=== PATIENT | female | born 1975 | race Caucasian/White ===

== ENCOUNTER 2020-07-07 19:12 | Inpatient (IN) | payer MEDICAID, SELFPAY ==
[2020-07-07 19:12] VITALS: BP 119/80; PULSE 81; RESP 16; TEMP 36.4; O2SAT 99; BMI 26.9
--- NOTE | 2020-07-07 20:10 | ED.DCSUM_ITS ---
History of Present Illness Chief Complaint: Substance Abuse Narrative: This patient is a 45-year-old female who presents seeking detox. On further questioning she actually is already involved with a detox program. She was on Suboxone. She recently went through a program because she wanted to be off of Suboxone and use of Vivitrol. She has been off Suboxone for a couple of weeks. She received Vivitrol last week. She relapsed and used heroin over the weekend. Currently she complains of nausea and chills. She also reported methamphetamine and K2 use. She otherwise is prescribed Geodon. No diabetes hypertension hyperlipidemia. Past Medical History - Allergies and Home Meds Allergies/Adverse Reactions: Allergies No Known Allergies Allergy (Verified 07/07/20 19:16) Primary Care Physician: Les Palacios DO [Primary Care Provider] - Past Medical History: - - Polysubstance abuse Review of Systems All systems negative except as indicated General: Reports: Chills. Denies: Fever Eyes: Denies: Visual changes - bilaterally ENT: Denies: Bilateral ear pain Cardiovascular: Denies: Chest pain Respiratory: Denies: Dyspnea Gastrointestinal: Reports: Nausea. Denies: Vomiting Skin: Denies: Rash Neurological: Denies: Headache Hematologic: Denies: Easy bruising Allergy: Denies: Uticaria Physical Exam Vital Signs/Narrative: Vital Signs Temp Pulse Resp BP Pulse Ox 07/07/20 19:12 97.6 F L 81 16 119/80 99 Inital Vital Signs reviewed: Yes General: Well nourished Head: Normocephalic Eyes: EOMI ENT: Moist mucous membranes Neck: Supple Cardiovascular: Regular rate Respiratory: No distress Abdomen: Soft Skin: Normal color Neurological: Alert Psychological: Normal affect Diagnostic/Tx/Re-eval - Medical Decision Making Patient has already been detoxed. She just relapsed. The water treatment plant supervisor who wants to get her into a residential program tomorrow. Therefore it was recommended that the patient be hospitalized for safety for overnight until we can try to get her into a residential program. She was given Zofran for nausea and I did order screening labs. Patient discussed with the hospitalist and patient will be admitted. ED Disposition - Plan for ED Patient: Disposition: Acute Care Hospital [facility] Diagnosis: Polysubstance abuse Referrals: Les Palacios DO [Primary Care Provider] -
--- NOTE | 2020-07-07 20:30 | CM.ED ---
SOCIAL WORK Informant: Dr. Jones Reason for Consult: Substance Abuse Patient presents to [facility] ER wanting detox. Patient reports used 2mg of heroin on Monday and Monday. Patient states this morning used Adderall and K2. Patient reports was given the Vivitrol shot on or Monday. Patient stating I may have my days wrong. Patient states is experiencing withdrawal symptoms, chills, crawling out of skin, and nausea. Dr. Jones to discuss with hospitalist. Facilitated phone call to [facility] Treatment Navigator to discuss options if not admitted to detox. Patient spoke with Amarjit. Per Amarjit and patient, discussed possibility of admission to residential treatment through [facility]. If admitted, Arina to follow up with patient in the morning. Girma Mojica, SCHOOL LUNCH MANAGER, FACING GRINDER
--- NOTE | 2020-07-07 21:10 | HP.PCM_ITS ---
Problem List (1) Polysubstance abuse Status: Acute History of Present Illness Date of Admission: 07/07/20 Chief Complaint: Withdrawal symptoms The patient is a 45 year old F with a significant history of polysubstance abuse who presents emergency department with withdrawal symptoms that started on the same day of presentation. Her drug of choice is methamphetamine; K2 and heroin. She has been snorting methamphetamine for about 5 years. She has been smoking K2 for about 3 years. And she has been shooting heroine for over 10 years. She described the symptoms as chills; anxiety; and nausea. Patient is working with [employer] with a plan to get her into an inpatient drug rehabilitation. Past Medical History Medical History: Medical History (Last Updated 07/08/20 @ 02:[address] Alek Collins MD) Denies previous medical history. Allergies No Known Allergies Allergy (Verified 07/07/20 19:16) Home Medications: Ambulatory Orders Medication Instructions Recorded Hydroxyzine Pamoate [Vistaril] 50 mg PO BID PRN PRN 07/07/20 Ziprasidone HCl [Geodon] 80 mg PO BID 07/07/20 Surgical History: - - Tubal ligation Smoking Status: Current every day smoker Tobacco Use: Cigarettes Drugs: Heroin - *Family History Maternal History Items: - - His mother from heroin overdose. Paternal History Items: - - His father is alive and healthy Review of Systems Constitutional: Reports: Chills. Denies: Fever, Weight Change HEENT: Denies: Head Aches, Sinus Congestion, Sinus Drainage Cardiovascular: Denies: Chest Pain, Palpitations Respiratory: Denies: Cough, Shortness of breath at rest, Sputum production Gastrointestinal: Reports: Nausea. Denies: Abdominal Pain, Vomiting Genitourinary: Denies: Dysuria Musculoskeletal: Denies: Joint Pain, Joint Tenderness Skin: Denies: Rash, Wounds Neurological: Denies: Numbness, Tingling, Focal weakness Psychiatric: Reports: Anxiety. Denies: Depression, Homicidal Ideations, Suicidal Ideations Hematologic/ Lymphatic: Denies: Easy Bruising, Easy Bleeding VTE Information - Inpt Only VTE Present on Admission: No VTE Mechan Device Prophylaxis: None VTE Pharm Prophylaxis ordered?: No Reason prophylaxis not ordered:: Treatment Not Indicated - Low risk; encouraged to ambulate. Patient Problems: Active and Suspected Problems (Last Updated 07/08/20 @ 02:[address] Alek Collins MD) Polysubstance abuse (Acute) - Physical Exam Vitals/I&O's: Vital Signs Temp Pulse Resp BP Pulse Ox 97.6 F L 81 16 119/80 99 07/07/20 19:12 07/07/20 19:12 07/07/20 19:12 07/07/20 19:12 07/07/20 19:12 Weight: 60.6 kg Body Mass Index (BMI) 26.9 General: Alert, Oriented x3, Cooperative HEENT: Atraumatic, PERRLA, EOMI, Normocephalic Neck: Supple, No JVD, Negative Carotid Bruits Lungs: Clear to auscultation, Normal air movement Cardiovascular: Regular rate, Regular Rhythm, Normal S1, Normal S2, No murmurs Abdomen: Bowel Sounds Present, Soft, Non Tender Extremities: No edema, Capillary Refill Less than 3 Seconds Skin: No rashes, No breakdown Musculoskeletal: No Tenderness to Palpation of Joints or Extremities Neurological: Cranial nerves II-XII grossly intact Psych/Mental Status: Normal Affect, Appropriate Assessment/Plan All Active Problems (Last Updated 07/08/20 @ 02:[address] Alek Collins MD) Polysubstance abuse (Acute) The patient is a 45 year old F with a significant history of polysubstance abuse including IV heroin use; and tobacco abuse who presents emergency department with drug withdrawal symptoms Opioid dependence and withdrawal Patient had a Vivitrol 5 days ago. Other adjunctive medications for withdrawal ordered: Gabapentin as needed; dicyclomine as needed; Vistaril as needed; methocarbamol as needed; clonidine as needed; Imodium as needed; trazodone as needed and Zofran as needed. Monitor COWS and CINA score Case management consult. Tobacco abuse Counseled Nicotine patch prescribed. DVT prophylaxis Low risk Encourage to ambulate Inpatient E&M: 30188 Init Hosp L2
[2020-07-07 21:26] LABS: Absolute Lymphocyte Count 3.69 X10^3/uL (0.83-4.51); Absolute Neutrophil Count 10.7 X10^3/uL (2.0-7.7); Basophil# 0.08 X10^3/uL; Basophil% 0.5 % (0-1); Eosinophil# 0.26 X10^3/uL; Eosinophils% 1.7 % (0-5); Hematocrit 41.1 % (37-47); Hemoglobin 13.7 g/dL (12.0-15.0); Lymphocyte # 3.69 X10^3/ul (4.0); Lymphocyte % 23.7 % (19-41); Mean Corp Hgb Conc 33.3 g/dL (32-36); Mean Corpuscular Hgb 29.5 pg (27.0-32.0); Mean Corpuscular Volume 88.6 fL (81-99); Mean Platelet Vol. 10.8 fl (6.2-12.0); Monocyte# 0.83 X10^3/uL; Monocyte% 5.3 % (0-10); NRBC Flagged by Analyzer 0 % (0-5); Neutrophil # 10.67 X10^3/uL (2.7-7.7); Neutrophil % 68.4 % (47-70); POSITIVE COUNT YES; Platelet Count 340 K/mm3 (150-450); RBC Distribution Width CV 13.1 % (11.6-14.6); RBC Distribution Width SD 42.5 fl (35.1-43.9); Red Blood Count 4.64 M/mm3 (4.2-5.4); White Blood Count 15.6 K/mm3 (4.4-11.0)
[2020-07-07 21:32] LABS: Differential Indicated SCAN CRITERIA MET
[2020-07-07 21:37] LABS: Amphetamine Urine VISTA POSITIVE (<1000 ng/mL); Barbiturate Urine VISTA NEGATIVE (< 200 ng/mL); Benzodiazepine Urine VISTA NEGATIVE (< 200 ng/mL); Cocaine Urine VISTA NEGATIVE (< 300 ng/mL); Ecstacy Urine VISTA POSITIVE (< 500 ng/mL); Methadone Urine VISTA NEGATIVE (< 300 ng/mL); PCP Urine VISTA NEGATIVE (< 25 ng/mL); THC Urine VISTA NEGATIVE (< 50 ng/mL); Vista UDS pH Range 6
[2020-07-07 21:39] VITALS: BP 119/80; PULSE 81; RESP 16; TEMP 36.4; O2SAT 99
[2020-07-07] MEDS: Ondansetron 8 MG Tablet PO (21:39)
--- NOTE | 2020-07-07 21:39 | ED.RN ---
PT IS VERY ANXIOUS AND QUICK TO LOOSE HER TEMPER. PT DID NOT WANT HER BLOOD DRAWN AGAIN BECAUSE SHE'S HAD IT DRAWN 3 TIMES TODAY ALREADY. NONE OF THEM HERE AT [facility]. I WAS ABLE TO OBTAIN SOME BLOOD FROM PT BEFORE THE NEEDLE PULLED OUT. A FEW DROPS OF BLOOD GOT ON THE INSIDE OF THE PTS JACKET. PT BECAME VERY UPSET, BUT THEN STATES THAT SHE UNDERSTANDS. I OFFERED TO USE HYDROGEN PEROXIDE TO REMOVE BLOOD, PT REFUSED.
[2020-07-07 21:40] LABS: AST(SGOT) 15 U/L (15-37); Alanine Aminotransfer ALT/SGPT 28 U/L (13-56); Albumin, Serum 3.8 g/dL (3.2-5.0); Alkaline Phosphatase 78 U/L (45-117); Anion Gap 7 (5-15); BUN 10 mg/dL (7-18); Calcium,Total 9.2 mg/dL (8.5-10.1); Chloride 106 mmol/L (98-107); Creatinine, Serum 0.83 mg/dL (0.55-1.02); EST Glomerular Filtration Rate 79 mL/min (>60); Est Glom Filt Rate - Afr Amer 95 mL/min (>60); Estimated Creatinine Clearance 81.89 ml/min; Globulin 3.8 g/dL (2.2-4.2); Glucose 96 mg/dL (74-106); Potassium 3.6 mmol/L (3.5-5.1); Protein, Total 7.6 g/dL (6.4-8.2); Sodium Level 138 mmol/L (136-145)
[2020-07-07 21:57] LABS: Differential Comment SCANNED
[2020-07-07 23:06] VITALS: BMI 26.9; BMI 27.0
[2020-07-07 23:06] LABS: Alcohol, Blood (Medical)-Serum < 3.0 mg/dL
[2020-07-07 23:20] VITALS: BP 119/75; PULSE 73; RESP 18; TEMP 37; O2SAT 99
[2020-07-07] MEDS: traZODone 100 MG Tablet PO (23:29)
[2020-07-07] MEDS: Dicyclomine 10 MG Capsule 20 MG PO (23:29)
[2020-07-07] MEDS: Ziprasidone HCl 20 MG Capsule 80 MG PO (23:30)
[2020-07-07] MEDS: Gabapentin 300 MG Capsule PO (23:30)
[2020-07-07] MEDS: Methocarbamol 750 MG Tablet 1500 MG PO (23:30)
[2020-07-07] MEDS: cloNIDine HCl 0.1 MG Tablet PO (23:30)
--- NOTE | 2020-07-07 23:39 | PCS.PANDOC ---
PANDEMIC DOCUMENTATION INITIATED: Date: 07/07/20 Time: 5490
--- NOTE | 2020-07-08 00:14 | ED.RN ---
WHEN THIS RN WENT TO DRAW BLOOD NEEDED THAT WAS NOT OBTAINED WITH FRST STICK. PT VERY ANGRY STATING, WHY DIDN'T YOU GET IT ALL THE FIRST TIME. THIS IS RIDICULOUS. PT YELLING AT THIS RN IN ROOM STATING THAT SHE IS SICK OF HOSPITALS AND HOW SHE HAS BEEN TREATED. THIS RN PROVIDES EMOTIONAL SUPPORT AND EXPLAINS TO PT THE ADMISSION PROCESS AND WHY BLOOD NEEDED TO BE OBTAINED. PT ALSO EDUCATED ABOUT HO BEHAVIOR OF YELLING AT STAFF WILL NOT BE TOLERATED ON ADMISSION AND IS PART OF THE CONTRACT THE PT SIGNED FOR DETOX. PT GIVEN TIME TO CALM DOWN AND IS THEN AGREEABLE TO BLOOD DRAW. AFTER BLOOD DRAW PT BECAME ANGRY AGAIN THAT SHE IS WAITING FOR ADMISSION. THIS RN PROVIDES RE-EDUCATION ON THE ADMISSION PROCESS. PT BELONGINGS GATHERED AND PLACED INTO BAGS FOR PENDING ADMISSION. PT CONTINUES TO BE ANGRY.
[2020-07-08 05:16] VITALS: BP 95/57; PULSE 72; RESP 16; TEMP 36.9; O2SAT 97
[2020-07-08] MEDS: Dicyclomine 10 MG Capsule 20 MG PO ×3 (05:29→17:32)
[2020-07-08] MEDS: Methocarbamol 750 MG Tablet 1500 MG PO ×3 (05:30→17:32)
[2020-07-08 09:10] VITALS: BP 112/58; PULSE 84; RESP 18; TEMP 36.5; O2SAT 100
[2020-07-08] MEDS: Ziprasidone HCl 20 MG Capsule 80 MG PO ×2 (09:11→21:22)
[2020-07-08] MEDS: Ondansetron 8 MG Tablet PO ×2 (09:16→21:56)
[2020-07-08] MEDS: Gabapentin 300 MG Capsule PO ×2 (09:16→17:32)
[2020-07-08 09:36] LABS: HIV - WCH Non-Reactive (Nonreactive)
[2020-07-08] MEDS: hydrOXYzine PAM 25 MG Capsule 50 MG PO ×2 (11:30→21:39)
--- NOTE | 2020-07-08 11:32 | ADDICTION ---
This va underwriter met with pt in her room to complete ASAM, MSE and DUDIT assessments and to plan for d/c. Pt states that she wants to engage in RES tx at [facility]. This va underwriter has made referral to [facility] RES team and is waiting for approval. All assessments completed, faxed to and placed in pt chart. SW notified of plan.
--- NOTE | 2020-07-08 11:46 | CASEMGMT ---
Addendum entered by Maryam Connor 07/08/20 13:50: SW received call from Ama at [facility] stating pt will direct admit to residential tomorrow with [facility] transporting pt at 10:00am. Physician updated. Original Note: Social Work Note SW updated that pt is Homeless, wants to move to [facility]. Pt's plan is to direct admit to [facility] residential. SW in to speak with pt. SW introduced self and role at [facility]. Pt is alert and orientated x3. SW provided pt with housing resources. Pt thanked this worker, denied additional needs or concerns at this time. Maryam Connor HEEL SEAT FLAP STAPLER, SUPERVISOR PASTE PLANT
[2020-07-08 14:00] VITALS: BP 107/74; PULSE 89; RESP 18; TEMP 36.6; O2SAT 95
[2020-07-08 14:01] VITALS: O2SAT 98
--- NOTE | 2020-07-08 14:27 | PCM.PN.HOSP ---
Patient Problems: Active and Suspected Problems (Last Updated 07/08/20 @ 02:[address] Alek Collins MD) Polysubstance abuse (Acute) Subjective: Patient has been admitted for opiate withdrawal. Per discussion with nursing she was given Vivitrol approximately 5 days ago but relapsed a day after her Vivitrol dose. I did discuss this with her. She states that she was admitted as an inpatient for acute detox, was discharged and immediately went and got her Vivitrol dosing, and the next day started using narcotics again. She states she wants to get clean but is having significant trouble staying clean when she is detoxed and would like to pursue inpatient treatment at this time. She states she knows she has hepatitis C but has not been tested for HIV recently. She currently is complaining of some withdrawal signs and thinks that it is probably related to spice withdrawal, and is in the form of nausea. Vitals/I&O's: Vital Signs Temp Pulse Resp BP Pulse Ox 97.7 F L 84 18 112/58 L 98 07/08/20 09:10 07/08/20 09:10 07/08/20 09:10 07/08/20 09:10 07/08/20 14:01 Oxygen Delivery Method Room Air Weight: 60.328 kg Body Mass Index (BMI) 26.9 Intake and Output for Last 24 Hours 07/06/20 07/07/20 07/08/20 23:59 23:59 23:59 Intake Total 1100 / 1100 Balance 1100 / 1100 General: Alert, Oriented x3, Cooperative, No apparent distress, Well developed, Well nourished, - - Middle-aged white female walking around her room, appears mildly anxious, nontoxic in no distress HEENT: Atraumatic, Normocephalic Oral: Moist Mucosa Lungs: Clear to auscultation, Normal air movement, No rhonchi, No wheeze, No rales Cardiovascular: Regular rate, Regular Rhythm, Normal S1, Normal S2, No murmurs, No Ectopic Activity, No rub noted, No Gallop Abdomen: Bowel Sounds Present, Soft, Non Tender, Non-Distended Extremities: No clubbing, No cyanosis, No edema, Capillary Refill Less than 3 Seconds, Peripheral Pulses Normal Neurological: Cranial nerves II-XII grossly intact, Neuro grossly intact Psych/Mental Status: Appropriate, Anxious Laboratory Results 07/07/20 21:15: WBC 15.6 H, RBC 4.64, Hgb 13.7, Hct 41.1, MCV 88.6, MCH 29.5, MCHC 33.3, RDW Std Deviation 42.5, RDW Coeff of Dc 13.1, Plt Count 340, MPV 10.8, Immature Gran % (Auto) 0.400, Neut % (Auto) 68.4, Lymph % (Auto) 23.7, Faulkner % (Auto) 5.3, Eos % (Auto) 1.7, Baso % (Auto) 0.5, Absolute Neuts (auto) 10.7 H, Absolute Lymphs (auto) 3.69, Nucleated RBC % 0, Differential Comment SCANNED 07/07/20 21:15: Sodium 138, Potassium 3.6, Chloride 106, Carbon Dioxide 25.0, Anion Gap 7, BUN 10, Creatinine 0.83, Estim Creat Clear Calc 81.89, Est GFR (MDRD) Af Amer 95, Est GFR (MDRD) Non-Af 79, BUN/Creatinine Ratio 12.0, Glucose 96, Calcium 9.2, Total Bilirubin 0.30, AST 15, ALT 28, Alkaline Phosphatase 78, Total Protein 7.6, Albumin 3.8, Globulin 3.8, Albumin/Globulin Ratio 1.0 07/07/20 21:15: Urine Opiates Screen NEGATIVE, Urine Methadone Screen NEGATIVE, Ur Barbiturates Screen NEGATIVE, Ur Phencyclidine Scrn NEGATIVE, Ur Amphetamines Screen POSITIVE H, U Methamphetamin-MDMA POSITIVE H, U Benzodiazepines Scrn NEGATIVE, Urine Cocaine Screen NEGATIVE, U Cannabinoids Screen NEGATIVE, Ur Drug Screen Comment 07/07/20 22:35: Ethyl Alcohol < 3.0 07/07/20 22:35: HIV 1&2 Antibody Non-Reactive Current Medications Clonidine (Clonidine Hcl 0.1 Mg Tablet) 0.1 mg PO Q8H PRN PRN PRN Reason: RESTLESSNESS Last Admin: 07/07/20 23:30 Dose: 0.1 mg Documented by: Dicyclomine HCl (Dicyclomine 10 Mg Capsule) 20 mg PO Q6H PRN PRN PRN Reason: Abdominal Discomfort Last Admin: 07/08/20 11:30 Dose: 20 mg Documented by: Gabapentin (Gabapentin 300 Mg Capsule) 300 mg PO Q8H PRN PRN PRN Reason: moderate to severe anxiety Last Admin: 07/08/20 09:16 Dose: 300 mg Documented by: Hydroxyzine Pamoate (Hydroxyzine Heidi 25 Mg Capsule) 50 mg PO Q6H PRN PRN PRN Reason: mild anxiety Last Admin: 07/08/20 11:30 Dose: 50 mg Documented by: Loperamide HCl (Loperamide 2 Mg Capsule) 2 mg PO Q4H PRN PRN PRN Reason: LOOSE STOOLS Methocarbamol (Methocarbamol 750 Mg Tablet) 1,500 mg PO Q6H PRN PRN PRN Reason: MUSCLE SPASM Last Admin: 07/08/20 11:30 Dose: 1,500 mg Documented by: Nicotine (Nicotine 14 Mg Patch) 14 mg TD DAILY [facility] Last Admin: 07/08/20 09:11 Dose: 14 mg Documented by: Ondansetron HCl (Ondansetron 8 Mg Tablet) 8 mg PO Q8H PRN PRN PRN Reason: NAUSEA Last Admin: 07/08/20 09:16 Dose: 8 mg Documented by: Trazodone HCl (Trazodone 100 Mg Tablet) 100 mg PO QHS PRN PRN PRN Reason: INSOMNIA Last Admin: 07/07/20 23:29 Dose: 100 mg Documented by: Ziprasidone (Ziprasidone Hcl 20 Mg Capsule) 80 mg PO BID [facility] Last Admin: 07/08/20 09:11 Dose: 80 mg Documented by: STROKE Vital Signs/Narrative: Vital Signs Pulse Ox 07/08/20 14:01 98 Medical Necessity - Tobacco Use Smoking Status: Current every day smoker Tobacco Use: Cigarettes Assessment/Plan All Active Problems (Last Updated 07/08/20 @ 02:[address] Alek Collins MD) Polysubstance abuse (Acute) Acute polysubstance withdrawal (posh, heroin, methamphetamines) -Recent Vivitrol shot--> 5 days ago -No need for Suboxone taper -Continue supportive medications -[facility] is involved in plan for discharge tomorrow morning at 10 AM to inpatient rehab Chronic hepatitis C -Patient would like viral load assessed as an outpatient to see if she is cleared disease -Recommend that she follow-up with her PCP IVDU -Known hepatitis C infection -Check a HIV status -See above Tobacco abuse -Recommend cessation -Nicotine patch as needed DVT prophylaxis -Early ambulation CODE STATUS -Full Inpatient E&M: 21704 Subs Hosp L2
[2020-07-08] MEDS: cloNIDine HCl 0.1 MG Tablet PO (14:57)
[2020-07-08] MEDS: traZODone 100 MG Tablet PO (21:22)
[2020-07-08] MEDS: Ibuprofen 400 MG Tablet 800 MG PO (21:49)
[2020-07-08 21:50] VITALS: BP 113/62; PULSE 90; RESP 20; TEMP 36.8; O2SAT 97
[2020-07-09 05:30] VITALS: BP 108/70; PULSE 83; RESP 20; TEMP 36.6; O2SAT 97
[2020-07-09] MEDS: Dicyclomine 10 MG Capsule 20 MG PO (05:30)
[2020-07-09] MEDS: Methocarbamol 750 MG Tablet 1500 MG PO (05:31)
[2020-07-09] MEDS: Gabapentin 300 MG Capsule PO (05:31)
[2020-07-09] MEDS: cloNIDine HCl 0.1 MG Tablet PO (05:31)
[2020-07-09 08:39] VITALS: BP 95/53; PULSE 100; RESP 18; TEMP 36.8; O2SAT 98
[2020-07-09] MEDS: Ondansetron 8 MG Tablet PO (08:48)
[2020-07-09] MEDS: Loperamide 2 MG Capsule PO (08:48)
[2020-07-09] MEDS: hydrOXYzine PAM 25 MG Capsule 50 MG PO (08:48)
[2020-07-09] MEDS: Ibuprofen 400 MG Tablet 800 MG PO (08:48)
--- NOTE | 2020-07-09 09:24 | ADDICTION ---
This sheet writer met with pt briefly to finalize d/c plan. Pt to be transported by [facility] staff to main office for direct admit into residential treatment. Pt. venus.
--- NOTE | 2020-07-09 09:27 | DCINST_ITS ---
- Discharge Diagnoses Current Active Problems: Current Active and Chronic Problems (Last Updated 07/08/20 @ 02:[address] Alek Collins MD) Polysubstance abuse (Acute) You will use the following diet at home:: No restrictions Your food should be the consistency of: Regular Discharge Activity: Return to Normal Activity Allergies/Adverse Reactions: Allergies No Known Allergies Allergy (Verified 07/07/20 19:16) Medications to take at Discharge Hydroxyzine Pamoate [Vistaril] 50 mg PO BID PRN PRN 07/07/20 Ziprasidone HCl [Geodon] 80 mg PO BID 07/07/20 traZODone [Desyrel] 100 mg PO QHS PRN PRN #30 tab 07/09/20 The following prescriptions were given: traZODone [Desyrel] 100 mg PO QHS PRN PRN #30 tab PRN Reason: Insomnia Transmission Status: Pending to [facility] Primary Care Physician: Les Palacios DO [COURTESY STAFF PHYSICIAN] - Please follow up with your Primary Care Physician in: 1-2 weeks after d/c from Inpt rehab Test Results: Test results from this visit will be discussed in further detail at your follow- up appointment, if applicable.
--- NOTE | 2020-07-09 09:38 | PCM.DC.SUM ---
Discharge Date and Diagnosis - Problem List Patient Problems: Active and Suspected Problems (Last Updated 07/08/20 @ 02:[address] Alek Collins MD) Polysubstance abuse (Acute) Date of Admission: 07/07/20 Date of Discharge: 07/09/20 - Primary Discharge Diagnosis Acute Problems: Active Problems (Last Updated 07/08/20 @ 02:[address] Alek Collins MD) Polysubstance abuse (Acute) Hospital Course and Treatment Imaging Results: None [facility]-addiction medicine Operations: None Procedures: None Summary of Care Provided: Ms Hidalgo is a 45 year old F who presented to the emergency department on 07/07/2020 for substance abuse. She has been involved in a detox program and was just given Vivitrol last week but relapsed and used IV heroin on the weekend prior to admission. On admission she was complaining of chills and nausea she states that she also uses K2 and methamphetamine and feels that her withdrawal symptoms may be related to withdrawal from methamphetamine and K2 rather than heroin given the fact that she had Vivitrol recently. She was admitted given supportive medications, with recent Vivitrol administration Suboxone was not given at this time. She was seen by [facility] and arranged for admission to the inpatient program. She does admit to a chronic history of hepatitis C. HIV study was performed and this was nonreactive. She states she very much wants to get clean for herself and for her children. [facility]. Discharge diagnoses Acute polysubstance withdrawal (K2, IV heroin, methamphetamines) Chronic hepatitis C IV drug use Tobacco abuse Patient Problems: Active and Suspected Problems (Last Updated 07/08/20 @ 02:[address] Alek Collins MD) Polysubstance abuse (Acute) Subjective: Patient states she is feeling well. Reports that the trazodone helped considerably and asked for a prescription at discharge. Denies any pain, nausea, diarrhea, or tremor. Is happy to be going to rehab today. - Physical Exam Vitals/I&O's: Vital Signs Temp Pulse Resp BP Pulse Ox 98.3 F 100 18 95/53 L 98 07/09/20 08:39 07/09/20 08:39 07/09/20 08:39 07/09/20 08:39 07/09/20 08:39 Oxygen Delivery Method Room Air Weight: 60.328 kg Body Mass Index (BMI) 26.9 Intake and Output for Last 24 Hours 07/07/20 07/08/20 07/09/20 23:59 23:59 23:59 Intake Total 1600 / 1600 200 / 200 Balance 1599 / 1600 200 / 200 General: Alert, Oriented x3, Cooperative, No apparent distress, Well developed, Well nourished, - - Pleasant middle-aged white female walking around room, and eating breakfast Oral: Moist Mucosa, No Gingival or Mucosal Lesions/ Ulcerations Neck: Supple, Trachea Midline Lungs: Clear to auscultation, Normal air movement, No rhonchi, No wheeze, No rales Cardiovascular: Regular rate, Regular Rhythm, Normal S1, Normal S2 Abdomen: Bowel Sounds Present, Soft, Non Tender, Non-Distended Extremities: No clubbing, No cyanosis, No edema, Capillary Refill Less than 3 Seconds, Peripheral Pulses Normal Neurological: Cranial nerves II-XII grossly intact, Neuro grossly intact Psych/Mental Status: Normal Affect, Appropriate Current Medications Clonidine (Clonidine Hcl 0.1 Mg Tablet) 0.1 mg PO Q8H PRN PRN PRN Reason: RESTLESSNESS Last Admin: 07/09/20 05:31 Dose: 0.1 mg Documented by: Dicyclomine HCl (Dicyclomine 10 Mg Capsule) 20 mg PO Q6H PRN PRN PRN Reason: Abdominal Discomfort Last Admin: 07/09/20 05:30 Dose: 20 mg Documented by: Gabapentin (Gabapentin 300 Mg Capsule) 300 mg PO Q8H PRN PRN PRN Reason: moderate to severe anxiety Last Admin: 07/09/20 05:31 Dose: 300 mg Documented by: Hydroxyzine Pamoate (Hydroxyzine Heidi 25 Mg Capsule) 50 mg PO Q6H PRN PRN PRN Reason: mild anxiety Last Admin: 07/09/20 08:48 Dose: 50 mg Documented by: Ibuprofen (Ibuprofen 400 Mg Tablet) 800 mg PO Q8H PRN PRN PRN Reason: Pain Score 1-10 Last Admin: 07/09/20 08:48 Dose: 800 mg Documented by: Loperamide HCl (Loperamide 2 Mg Capsule) 2 mg PO Q4H PRN PRN PRN Reason: LOOSE STOOLS Last Admin: 07/09/20 08:48 Dose: 2 mg Documented by: Methocarbamol (Methocarbamol 750 Mg Tablet) 1,500 mg PO Q6H PRN PRN PRN Reason: MUSCLE SPASM Last Admin: 07/09/20 05:31 Dose: 1,500 mg Documented by: Nicotine (Nicotine 14 Mg Patch) 14 mg TD DAILY [facility] Last Admin: 07/09/20 09:12 Dose: Not Given Documented by: Ondansetron HCl (Ondansetron 8 Mg Tablet) 8 mg PO Q8H PRN PRN PRN Reason: NAUSEA Last Admin: 07/09/20 08:48 Dose: 8 mg Documented by: Trazodone HCl (Trazodone 100 Mg Tablet) 100 mg PO QHS PRN PRN PRN Reason: INSOMNIA Last Admin: 07/08/20 21:22 Dose: 100 mg Documented by: Ziprasidone (Ziprasidone Hcl 20 Mg Capsule) 80 mg PO BID [facility] Last Admin: 07/08/20 21:22 Dose: 80 mg Documented by: Discharge Activity: Return to Normal Activity Home Medications: Medications to take at Discharge Hydroxyzine Pamoate [Vistaril] 50 mg PO BID PRN PRN 07/07/20 Ziprasidone HCl [Geodon] 80 mg PO BID 07/07/20 traZODone [Desyrel] 100 mg PO QHS PRN PRN #30 tab 07/09/20 Following Prescriptions Were Given to Patient: traZODone [Desyrel] 100 mg PO QHS PRN PRN #30 tab PRN Reason: Insomnia Transmission Status: Received by [facility] Primary Care Physician: Lse Palacios DO [COURTESY STAFF PHYSICIAN] - Please follow up with your Primary Care Physician in: 1-2 weeks after d/c from In rehab Medical Necessity - Tobacco Use Smoking Status: Current every day smoker Tobacco Use: Cigarettes Meaningful Use Info Meaningful Use Diagnoses (Choose all that apply): None applicable Inpatient E&M: 35882 [facility]
[2020-07-09] MEDS: Ziprasidone HCl 20 MG Capsule 80 MG PO (09:51)
== END 2020-07-09 09:58 | DRG 773 ==
LOC: ED 20:56 → MS3 21:14
PROVIDERS: Admitting Provider Hospitalist; Emergency Provider Emergency Medicine; Visit Provider Internal Medicine
DX: F11.23 Opioid dependence with withdrawal (principal); F15.13 Other stimulant abuse with withdrawal; F12.13 Cannabis abuse with withdrawal; F17.210 Nicotine dependence, cigarettes, uncomplicated; B18.2 Chronic viral hepatitis C; Z81.8 Family history of other mental and behavioral disorders
CPT/HCPCS: 36415; 80053; 80307; 82077; 85025; 86703; 99283; 99406; J2405

== ENCOUNTER 2020-09-15 13:11 | Outpatient (REF) | payer MEDICAID, SELFPAY ==
[2020-07-07 23:06] VITALS: BMI 26.9
[2020-09-15 13:12] VITALS: BP 115/65; PULSE 80; RESP 16; TEMP 36.8; O2SAT 99; BMI 26.9
--- NOTE | 2020-09-15 13:20 | ED.RN ---
pt denies illegal drugs or alcohol. pt asking for food and something to drink.
--- NOTE | 2020-09-15 13:47 | ED.VISSUMM ---
- ER Visit Summary Date of Service: 09/15/20 Chief Complaint: Altered level of consciousness] History of Present Illness: The patient is a 45 F [presents to the emergency department via police escort and EMS. [facility] and was found in her car sleeping and EMS was contacted however at that time she was ANO x3 and refused to transport. Subsequently later in the day today she was once again found on the sidewalk in her vehicle and EMS was again contacted who bring her to the emergency department for evaluation. Patient does not know why she parked on the sidewalk. She denies any illicit drug use or alcohol use. Patient states that she has been clean of meth for 1 year and has used opiates in the past but not for a long time. She denies any alcohol use. She denies recent illness. Patient denies any falls or head injuries. She denies headache.] Physical Examination: [HEENT-PERRLA, EOMI. Cranial nerves II through XII grossly intact. TMs clear. Mucous membranes moist. No adenopathy. Patient answers questions appropriately but seems somewhat somnolent. Cardiovascular-regular rate and rhythm without murmur or ectopy Lungs-clear to auscultation, chest wall stable without crepitus or subcu emphysema Abdomen-normoactive bowel sounds, soft, nontender, no rebound or rigidity, no peritoneal signs. Extremities-intact ?4, normal range of motion, normal pulses, atraumatic. No track raman noted.] Test Results: [CBC with it was normal. Chemistries normal. Alcohol was negative. Toxicology screen was negative.] Emergency Department Course and Treatment: [The line established on arrival. Patient placed on a instructor adjunct surgical technician.] Treatment Plan: [This point patient will be discharged. She will be referred to primary care physician lamination builder for no doc for follow-up. At this point patient feels that maybe she fell asleep in her car but feels well and has not been ill and is ready to be discharged.] Disposition: [Patient home in stable condition] Impression: [Mental status [id number] uncertain] This note was generated with [employer] dictation software. It may contain incorrect words, spelling, and punctuation that were not noted in review of the chart prior to signing ED Disposition - Plan for ED Patient: Referrals: Care Physician,No Primary [Primary Care Provider] -
[2020-09-15 14:02] LABS: Absolute Lymphocyte Count 2.18 X10^3/uL (0.83-4.51); Absolute Neutrophil Count 5.1 X10^3/uL (2.0-7.7); Basophil# 0.06 X10^3/uL; Basophil% 0.7 % (0-1); Eosinophil# 0.17 X10^3/uL; Eosinophils% 2.1 % (0-5); Hematocrit 43.5 % (37-47); Lymphocyte # 2.18 X10^3/ul (4.0); Mean Corp Hgb Conc 32.2 g/dL (32-36); Mean Corpuscular Hgb 29.9 pg (27.0-32.0); Mean Corpuscular Volume 92.9 fL (81-99); Mean Platelet Vol. 10.3 fl (6.2-12.0); Monocyte# 0.55 X10^3/uL; Monocyte% 6.8 % (0-10); NRBC Flagged by Analyzer 0 % (0-5); Neutrophil # 5.08 X10^3/uL (2.7-7.7); Platelet Count 260 K/mm3 (150-450); RBC Distribution Width CV 13.7 % (11.6-14.6); RBC Distribution Width SD 46.5 fl (35.1-43.9); Red Blood Count 4.68 M/mm3 (4.2-5.4); White Blood Count 8.1 K/mm3 (4.4-11.0)
[2020-09-15] MEDS: 0.9% Normal Saline 1,000 ML 150 ML IV (14:06)
[2020-09-15 14:15] LABS: Anion Gap 3 (5-15); BUN 11 mg/dL (7-18); BUN/Creat Ratio 12.3 RATIO (10-20); Calcium,Total 9.3 mg/dL (8.5-10.1); Chloride 109 mmol/L (98-107); EST Glomerular Filtration Rate 72 mL/min (>60); Est Glom Filt Rate - Afr Amer 87 mL/min (>60); Estimated Creatinine Clearance 75.39 ml/min; Glucose 85 mg/dL (74-106); Sodium Level 143 mmol/L (136-145)
[2020-09-15 14:47] LABS: Alcohol, Blood (Medical)-Serum < 3.0 mg/dL
[2020-09-15 15:21] VITALS: BP 117/90; PULSE 76; RESP 16
[2020-09-15 15:40] LABS: Amphetamine Urine VISTA NEGATIVE (<1000 ng/mL); Barbiturate Urine VISTA NEGATIVE (< 200 ng/mL); Benzodiazepine Urine VISTA NEGATIVE (< 200 ng/mL); Cocaine Urine VISTA NEGATIVE (< 300 ng/mL); Ecstacy Urine VISTA NEGATIVE (< 500 ng/mL); Methadone Urine VISTA NEGATIVE (< 300 ng/mL); PCP Urine VISTA NEGATIVE (< 25 ng/mL); THC Urine VISTA NEGATIVE (< 50 ng/mL); Vista UDS pH Range 5
--- NOTE | 2020-09-15 15:54 | ED.DEP ---
ED Disposition - Plan for ED Patient: Instructions: ED ALOC Referrals: Care Physician,No Primary [Primary Care Provider] - Héctor Gutierrez MD [STAFF PHYSICIAN] - 3-5 Days
== END 2020-09-15 16:00 | disposition home or self-care (01) ==
LOC: ED 13:11
PROVIDERS: Visit Provider Emergency Medicine
DX: R41.82 Altered mental status, unspecified (principal); Z72.0 Tobacco use
CPT/HCPCS: 80048; 80307; 82077; 85025; 99284; J7030; A4216

== ENCOUNTER 2020-09-17 16:02 | Emergency (ER) | payer MEDICAID, SELFPAY ==
[2020-09-17 16:05] VITALS: BP 99/59; PULSE 95; RESP 14; TEMP 37.1; O2SAT 96; BMI 28.0
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
--- NOTE | 2020-09-17 17:24 | ED.RN ---
PT CAUGHT SMOKING CIGARETTE IN ROOM. BOBBIN HAULER AND CIGARETTES REMOVED, REMINDED PT OF NON-SMOKING POLICY. CHARGE UPDATED. PT HAVING DIFFICULTY WALKING, STAGGERING. APPEARS DROWSY, SPEECH SLURRED.
[2020-09-17 18:24] LABS: Amphetamine Urine VISTA NEGATIVE (<1000 ng/mL); Barbiturate Urine VISTA NEGATIVE (< 200 ng/mL); Benzodiazepine Urine VISTA NEGATIVE (< 200 ng/mL); Cocaine Urine VISTA NEGATIVE (< 300 ng/mL); Ecstacy Urine VISTA NEGATIVE (< 500 ng/mL); Methadone Urine VISTA NEGATIVE (< 300 ng/mL); PCP Urine VISTA NEGATIVE (< 25 ng/mL); THC Urine VISTA NEGATIVE (< 50 ng/mL); Vista UDS pH Range 5
== END 2020-09-17 18:46 | disposition home or self-care (01) ==
PROVIDERS: Emergency Provider Emergency Medicine
DX: Z02.89 Encounter for other administrative examinations (principal); F19.10 Other psychoactive substance abuse, uncomplicated; F17.200 Nicotine dependence, unspecified, uncomplicated; R40.0 Somnolence
CPT/HCPCS: 80307; 82077; 99282

== ENCOUNTER 2020-11-02 17:16 | Inpatient (IN) | payer MEDICAID, SELFPAY ==
[2020-11-02 17:17] VITALS: BP 84/56; PULSE 61; RESP 16; TEMP 37.1; O2SAT 95; BMI 23.8
--- NOTE | 2020-11-02 17:35 | EDS_ITS ---
HPI History of Present Illness Chief Complaint: Substance Abuse Informant: patient Onset/Context/Timing Onset: Days Context: Gradual Onset Timing: Continuous Current Severity: Moderate Maximum Severity: Moderate Narrative Narrative: The patient is a 45-year-old female presents to the emergency department questing opiate detox. Patient states she has a longstanding history of opiate abuse. She was actually able to detox and stayed clean for some time, but then started using again 4 weeks ago. She states that she also uses synthetic marijuana. She snorts heroin. She denies injection. She states that she did used to take. Prior similar symptoms: Yes Recent Illness/Hospitalization: No PFSH [facility] Medical History (Updated 11/02/20 @ 18:[address] Sara Valadez MD) Denies previous medical history. Drug addict Home Medications NK 09/15/20 [History Last Taken Unknown] Allergy/AdvReac Type Severity Reaction Status Date / Time No Known Allergies Allergy Verified 11/02/20 17:16 Social History Smoking Status: Current every day smoker ROS ROS ED Constitutional Constitutional ED: Denies chills or fever(s) Eyes Eyes: Denies blurry vision or change in vision ENT ENT ED: Denies ear pain or sore throat Cardiovascular Cardiovascular: Denies chest pain or palpitations Respiratory/Chest Respiratory/Chest: Denies cough, dyspnea or dyspnea on exertion Gastrointestinal Gastrointestinal: Denies abdominal pain, nausea or vomiting Genitourinary Genitourinary ED: Denies dysuria or urinary frequency Musculoskeletal Musculoskeletal: Denies arthralgias or myalgias Integumentary Denies rash Neurologic Neurologic: Denies headache(s) or paresthesias Psychiatric Psychiatric: Denies anxiety or depression Endocrine Endocrinology: Denies polydipsia or polyuria Allergic/Immunologic Allergic/Immunologic ED: Denies urticaria EXAM Physical Exam Const Vital Signs: 11/02/20 17:17 Temperature 98.7 F Temperature Source Temporal Pulse Rate 61 Respiratory Rate 16 Blood Pressure 84/56 L Blood Pressure Mean 65 Pulse Ox 95 Oxygen Delivery Method Room Air Positive well nourished and well developed General Appearance ED: well developed HEENT Reports normocephalic, head/scalp atraumatic and moist mucous membranes Eyes PERRL and EOMs intact bilaterally Neck no lymphadenopathy and supple General: Negative for tenderness Chest Wall inspection of chest normal Resp normal respiratory effort and clear to auscultation bilaterally Cardio regular rate, regular rhythm and no murmurs GI normal to inspection, nondistended, normoactive bowel sounds Palpation: Negative for tender, guarding or rebound tenderness present Back/Spine no CVA tenderness Cervical Spine: Negative for cervical spine tenderness Thoracic Spine / Upper Back: Negative for thoracic spinal tenderness Extremity normal to inspection General Extremety ED: Negative for tenderness Neuro oriented x3 and CN's II-XII intact bilaterally Neuro Narrative: No focal deficits appreciated. Sensorium / Orientation: alert Psych mental status grossly normal Skin no rashes or lesions noted, no wounds and skin turgor normal MDM MDM MDM Narrative Medical decision making narrative: Patient presents requesting detox from heroin. She is awake and alert. She is not suicidal or homicidal. Patient will undergo medical screening examination. She was discussed with the hospitalist for admission. Impression 1. Opiate dependence and withdrawal Discharge Plan Triage Chief Complaint: Substance Abuse ED Provider: Gulshan Brar Dx/Rx/DC Orders Prescriptions: No Action NK RF: 0 Primary Care Provider: Care Physician,No Primary
--- NOTE | 2020-11-02 18:14 | PCM.HP.STD ---
[facility] General Date of Admission: 11/02/20 Chief Complaint: Requesting detox from opioids. [facility] Narrative PERLA BREAUX, is a 45 F with past medical history as mentioned above presented to the emergency room requesting admission for acute opioid withdrawal for medical stabilization. Patient was admitted on June, for acute opioid withdrawal and she was discharged to follow-up with [facility] program. She stated that she followed up for short period of time with monitoring program and then lost it. She stated supple for about couple of months. Around 1 month ago, she started using drugs again. She has been snorting heroin every day, around 1.5 g every day and she has been smoking synthetic marijuana as well. She denied use of IV drugs. She complained of muscle aches and pains, anxiety and restlessness. She was tearful during the encounter. She mentioned that her life is miserable currently and she wants to take care of this issue. Her blood pressure was borderline but she was asymptomatic, other vital signs were stable. CBC was unremarkable. CMP, urine drug screen and blood alcohol level are pending. She is being admitted for acute opiate withdrawal medical stabilization. [facility] Medical History (Updated 11/02/20 @ 18:[address] Sara Valadez MD) Denies previous medical history. Drug addict Home Medications NK 09/15/20 [History Last Taken Unknown] Allergy/AdvReac Type Severity Reaction Status Date / Time No Known Allergies Allergy Verified 11/02/20 17:16 no significant family history no surgical history Social History (Updated 11/02/20 @ 18:[address] Sara Valadez MD) Smoking Status: Current every day smoker substance use type: marijuana and heroin ROS Constitutional Constitutional: Denies anorexia, chills, fatigue, fever(s) or malaise Eyes Eyes: Denies blurry vision, change in eye color, change in vision, double vision or eye pain ENT HEENT: Denies ear pain, epistaxis, headache(s), nasal congestion, post nasal drip or sore throat Cardiovascular Cardiovascular: Denies chest pain, dyspnea on exertion, edema, lightheadedness, orthopnea, palpitations, paroxysmal nocturnal dyspnea or syncope Respiratory/Chest Respiratory/Chest: Denies cough, dyspnea, hemoptysis, productive cough, shortness of breath at rest, shortness of breath with exertion or wheezing Gastrointestinal Gastrointestinal: Denies abdominal pain, constipation, diarrhea, hematemesis, hematochezia, melena, nausea or vomiting Genitourinary Genitourinary: Denies burning urination, dysuria, hematuria, urinary hesitancy or urinary urgency Musculoskeletal Musculoskeletal: Denies arthralgias, back pain, joint pain, joint swelling, myalgias or neck pain Neurologic Neurologic: Reports tremor(s); Denies confusion, dizziness, focal weakness, headache(s), numbness, paresthesias, seizures or tingling Psychiatric Psychiatric: Reports anxiety; Denies depression, homicidal ideation or suicidal ideation Endocrine Endocrinology: Denies change in body appearance, cold intolerance, heat intolerance, polydipsia or polyuria Hematologic/Lymphatic Hematologic/Lymphatic: Reports other; Denies easy bleeding, easy bruising or lymphadenopathy Allergic/Immunologic Allergic/Immunologic: Denies itchy eyes, rhinitis, throat swelling, tongue swelling, hives, urticaria or wheezing Vital Signs Vital Signs Vital Signs: 11/02/20 17:17 Temperature 98.7 F Temperature Source Temporal Pulse Rate 61 Respiratory Rate 16 Blood Pressure 84/56 L Blood Pressure Mean 65 Pulse Ox 95 Oxygen Delivery Method Room Air Physical Exam Const alert, oriented x3, no apparent distress and no limitations General Appearance: cooperative, comfortable and well kempt HEENT normocephalic, head/scalp atraumatic and moist oral mucous membranes Head and Scalp: normocephalic and atraumatic Eyes PERRL, EOMs intact bilaterally, conjunctivae normal and no scleral icterus General Eye: normal appearance of both eyes Periorbital: periorbital findings normal Neck no lymphadenopathy, supple, no meningeal signs, no JVD and no carotid bruits General: trachea midline Thyroid: thyroid normal Resp normal respiratory effort, normal air movement and clear to auscultation bilaterally Auscultation: Negative for crackles, rales, rhonchi or wheezes Cardio regular rate, regular rhythm, S1 normal heart sound, S2 normal heart sound, no murmurs and no JVD Peripheral Pulses: pulses 2+ throughout GI normal to inspection, nondistended, normoactive bowel sounds, soft to palpation, non-tender and non-distended; Negative for hepatosplenomegaly Auscultation: normoactive bowel sounds Extremity normal to inspection, full ROM and no clubbing, cyanosis or edema Skin no rashes or lesions noted, no wounds and no petechiae Neuro oriented x3, CN's II-XII intact bilaterally and moves all extremities Sensorium / Orientation: alert Speech: speech normal Motor Exam: strength 5/5 throughout Psych mental status grossly normal and denies hallucinations Psych Narrative: Tearful. Mood & Affect: anxious Lab / Micro Data Result Diagrams: 11/02/20 18:25 11/02/20 17:45 Assessment & Plan Assessment/Plan (1) Opioid withdrawal: (2) Tobacco abuse: (3) Opioid abuse: (4) Polysubstance abuse: PLAN: This is a 45 years old female patient presented to the emergency room requesting admission for acute opioid withdrawal for medical stabilization. #1 acute opiate withdrawal: Patient was admitted for detox on June,, relapsed couple of months later. She has been snorting heroin every day for the last 4 weeks, has been smoking synthetic marijuana as well. CBC was unremarkable. CMP, urine drug screen and blood alcohol are pending. Plan: Admit to [facility] floor, initiate opioid withdrawal protocol with tapering Subutex, as needed Catapres, Bentyl, Neurontin, Vistaril, Imodium, methocarbamol, Zofran and trazodone, consult [facility] program. #2 polysubstance abuse: Urine drug screen is pending. Plan as above. #3 tobacco abuse: NicoDerm patch. #4 DVT prophylaxis: Low risk patient, no prophylaxis indicated. This note was generated with [employer] dictation software. It may contain incorrect words, spelling, and punctuation that were not noted in checking the note before signing. Visit Charges Inpatient E&M: 79755 Init Hosp L2
[2020-11-02 18:33] LABS: Absolute Lymphocyte Count 4.08 X10^3/uL (0.83-4.51); Absolute Neutrophil Count 5.8 X10^3/uL (2.0-7.7); Basophil# 0.07 X10^3/uL; Basophil% 0.6 % (0-1); Eosinophil# 0.14 X10^3/uL; Eosinophils% 1.3 % (0-5); Hematocrit 43.1 % (37-47); Hemoglobin 14.3 g/dL (12.0-15.0); Lymphocyte # 4.08 X10^3/ul (0.83-4.51); Lymphocyte % 37.3 % (19-41); Mean Corp Hgb Conc 33.2 g/dL (32-36); Mean Corpuscular Hgb 29.8 pg (27.0-32.0); Mean Corpuscular Volume 89.8 fL (81-99); Mean Platelet Vol. 9.8 fl (6.2-12.0); Monocyte# 0.85 X10^3/uL; Monocyte% 7.8 % (0-10); NRBC Flagged by Analyzer 0 % (0-5); Neutrophil # 5.79 X10^3/uL (2.7-7.7); Neutrophil % 52.8 % (47-70); Platelet Count 341 K/mm3 (150-450); RBC Distribution Width CV 13.6 % (11.6-14.6); RBC Distribution Width SD 44.9 fl (35.1-43.9)
[2020-11-02 18:36] LABS: Bacteria 0 SEEN /hpf (None Seen); Red Blood Cells-Urine 0 SEEN /hpf (0-5)
[2020-11-02 18:44] LABS: Color, Urine Yellow (Yellow); Glucose, Dipstick Normal (Normal); Ketone-Dipstick Negative (Negative); Leukocyte Esterase-Dipstick 25 /ul (Negative); Nitrite-Dipstick Negative (Negative); Occult Blood-Urine Negative /ul (Negative); Protein-Dipstick 15 mg/dl (Negative); Specific Gravity, Urine 1.025 (1.002-1.030); Urine Bilirubin Dipstick Negative (Negative); Urine Clarity Clear (Clear); Urine Urobilinogen 1 mg/dl (Normal)
[2020-11-02 18:47] LABS: Internal QC Validated? YES +Cl - CLEAR BKGD
[2020-11-02 18:48] LABS: Pregnancy, Urine Negative Negative
[2020-11-02 19:14] LABS: Amphetamine Urine VISTA POSITIVE (<1000 ng/mL); Barbiturate Urine VISTA NEGATIVE (< 200 ng/mL); Benzodiazepine Urine VISTA NEGATIVE (< 200 ng/mL); Cocaine Urine VISTA NEGATIVE (< 300 ng/mL); Ecstacy Urine VISTA POSITIVE (< 500 ng/mL); Methadone Urine VISTA NEGATIVE (< 300 ng/mL); PCP Urine VISTA NEGATIVE (< 25 ng/mL); THC Urine VISTA NEGATIVE (< 50 ng/mL); Vista UDS pH Range 6
[2020-11-02 19:18] LABS: Mucous, Urine RARE /hpf (<or=2+); Squamous Epithelial Cells - UA 0-5 SEEN /hpf (5-10); White Blood Cells 0-5 SEEN /hpf (0-5)
--- NOTE | 2020-11-02 19:40 | CM.ED ---
SOCIAL WORK Referral Source: Self-Referral Reason for Referral: Substance Abuse Met with patient in room. Introduced role and reason for referral. Patient requesting detox from heroin and K2. Patient reports last use was around 5am this morning. Patient states has been through detox in the past. Patient aware of [facility] agreement and denies any questions or concerns. Call to [facility] Treatment Navigator to update on patient's admission. Arina to be in tomorrow to complete assessment. Plan: Admit to [facility]. Galina, PRINCIPAL TRAINER, SENIOR SHAREPOINT ARCHITECT
[2020-11-02 19:50] LABS: Alcohol, Blood (Medical)-Serum < 3.0 mg/dL
[2020-11-02 19:53] LABS: AST(SGOT) 24 U/L (15-37); Alanine Aminotransfer ALT/SGPT 41 U/L (13-56); Albumin, Serum 3.7 g/dL (3.2-5.0); Alkaline Phosphatase 62 U/L (45-117); Anion Gap 8 (5-15); BUN 16 mg/dL (7-18); BUN/Creat Ratio 17.1 RATIO (10-20); Calcium,Total 9.5 mg/dL (8.5-10.1); Chloride 103 mmol/L (98-107); Creatinine, Serum 0.94 mg/dL (0.55-1.02); EST Glomerular Filtration Rate 69 mL/min (>60); Est Glom Filt Rate - Afr Amer 83 mL/min (>60); Estimated Creatinine Clearance 63.83 ml/min; Globulin 3.7 g/dL (2.2-4.2); Glucose 91 mg/dL (74-106); Potassium 3.3 mmol/L (3.5-5.1); Protein, Total 7.4 g/dL (6.4-8.2); Sodium Level 138 mmol/L (136-145)
[2020-11-02] MEDS: LORazepam 1 MG Tablet PO (20:34)
[2020-11-02] MEDS: Ondansetron ODT 4 MG Tablet PO (20:34)
[2020-11-02 20:35] VITALS: BP 105/72; PULSE 89; RESP 16; TEMP 36.8; O2SAT 98
[2020-11-02 21:26] VITALS: BMI 24.5
[2020-11-02 21:39] VITALS: BP 107/70; PULSE 87; RESP 20; TEMP 36.7; O2SAT 94
[2020-11-02] MEDS: Buprenorphine HCl 2 MG TAB.SUBL SL (22:38)
[2020-11-02] MEDS: hydrOXYzine PAM 25 MG Capsule 50 MG PO (23:34)
[2020-11-02] MEDS: traZODone 100 MG Tablet PO (23:35)
[2020-11-03 00:50] VITALS: BP 101/62; PULSE 102; RESP 18; TEMP 36.4; O2SAT 98
[2020-11-03] MEDS: Dicyclomine 10 MG Capsule 20 MG PO (00:56)
[2020-11-03] MEDS: Ondansetron 8 MG Tablet PO (00:56)
[2020-11-03] MEDS: Methocarbamol 750 MG Tablet 1500 MG PO (00:57)
[2020-11-03] MEDS: Gabapentin 300 MG Capsule PO (00:58)
[2020-11-03] MEDS: cloNIDine HCl 0.1 MG Tablet PO (00:58)
[2020-11-03 02:21] VITALS: BP 104/62; PULSE 102; RESP 18; TEMP 36.3; O2SAT 96
[2020-11-03] MEDS: LORazepam 2 MG/ML Syringe IV ×2 (02:46→05:04)
[2020-11-03] MEDS: Haloperidol Lactate 5 MG/ML Vial IM (04:05)
[2020-11-03] MEDS: 0.9% Saline Lock 10 ML Syringe IV ×2 (04:06→05:04)
--- NOTE | 2020-11-03 04:13 | NURSING ---
Pt is agitated, disruptive and is rushing frantically all over the room. Has threatened to leave. Dr. Gongora contacted. Kevin order obtained and given. Security called and is present outside pt's room. Iain DEVI is sitting in room to keep pt safe. She is in bed at this time.
--- NOTE | 2020-11-03 05:30 | NURSING ---
At approximately 0430, the managed security sales consultant and 2 garage construction equipment mechanic were standing in the pt's room and she was trying to push past staff to get out of the room. I asked the security intern if the resource officer was still in house. He replied that they had just left. When the managed security sales consultant saw that the pt had the potential for being violent and was kind of charging toward staff to leave the room, he reached out to D to come just in case. Two [employer] officers arrived. When asked if they were familiar with this pt since she had an ankle band on like she was on house arrest, they remembered that she has had [address] Gongora had been contacted and came to the room shortly after the officers arrived. Upon receiving information that the pt was probably withdrawing from alcohol in addition to drugs, new orders were entered to account for the alcohol withdrawal.
--- NOTE | 2020-11-03 10:51 | ADDICTION ---
This proposal writer attempted to meet with PT. PT was extremely agitated and reported feeling like shit. She was agreeable to meet with this proposal writer but fell asleep prior to starting assessments and would not rouse to verbal queuing. This proposal writer will attempt to follow up with PT at next visit.
[2020-11-03 13:30] VITALS: BP 76/54; PULSE 70; RESP 18; TEMP 36.7; O2SAT 93
[2020-11-03 14:21] VITALS: O2SAT 93
[2020-11-03 17:14] VITALS: BP 90/52; PULSE 77; RESP 18; TEMP 36.9; O2SAT 93
--- NOTE | 2020-11-03 17:58 | PCM.PN.HOSP ---
Subjective Subjective Patient was seen and examined today, she was sleeping very deeply today and I did not attempt to wake the patient up, she had some agitation earlier this morning and had to have additional sedation. Nursing states that she has had no complaints of any distress today. Objective Data Objective Data Vital Signs: Vital Signs Temp Pulse Resp BP Pulse Ox 98.5 F 77 18 90/52 L 93 11/03/20 17:14 11/03/20 17:14 11/03/20 17:14 11/03/20 17:14 11/03/20 17:14 Oxygen Delivery Method Room Air Weight: 55.2 kg Body Mass Index (BMI) 24.5 Intake & Output: Intake and Output for Last 24 Hours 11/01/20 11/02/20 11/03/20 23:59 23:59 23:59 Intake Total 1160 / 1160 Balance 1160 / 1160 Lab / Micro Data Result Diagrams: 11/02/20 18:25 11/02/20 19:17 Labs: Laboratory Results - last 24 hr 11/02/20 11/02/20 11/02/20 17:45 17:45 17:45 WBC Cancelled Corrected WBC Cancelled RBC Cancelled Hgb Cancelled Hct Cancelled MCV Cancelled MCH Cancelled MCHC Cancelled RDW Std Deviation Cancelled RDW Coeff of Dc Cancelled Plt Count Cancelled MPV Cancelled Immature Gran % (Auto) Cancelled Neut % (Auto) Cancelled Lymph % (Auto) Cancelled [place] % (Auto) Cancelled Eos % (Auto) Cancelled Baso % (Auto) Cancelled Absolute Neuts (auto) Cancelled Absolute Lymphs (auto) Cancelled Total Counted Cancelled Neutrophils % (Manual) Cancelled Band Neutrophils % Cancelled Lymphocytes % (Manual) Cancelled Monocytes % (Manual) Cancelled Eosinophils % (Manual) Cancelled Basophils % (Manual) Cancelled Metamyelocytes % Cancelled Myelocytes % Cancelled Promyelocytes % Cancelled Blast Cells % Cancelled Plasma Cell % (Manual) Cancelled Other Cells % Cancelled Nucleated RBC % Cancelled Nucleated RBCs/100 WBC Cancelled Differential Comment Cancelled Diff Path Review Cancelled Hypersegmented Neuts Cancelled Atypical Lymphocytes Cancelled Reactive Lymphocytes Cancelled Smudge Cells Cancelled Toxic Granulation Cancelled Toxic Vacuolation Cancelled Dohle Bodies Cancelled Nazanin Rods Cancelled Platelet Estimate Cancelled Plt Morphology Comment Cancelled RBC Morphology Cancelled Polychromasia Cancelled Hypochromasia Cancelled Poikilocytosis Cancelled Basophilic Stippling Cancelled Anisocytosis Cancelled Microcytosis Cancelled Macrocytosis Cancelled Spherocytes Cancelled Sickle Cells Cancelled Target Cells Cancelled Tear Drop Cells Cancelled Ovalocytes Cancelled Stomatocytes Cancelled [place] Bodies Cancelled [place] Cells Cancelled Bite Cells Cancelled Crenated Cell Cancelled Acanthocytes (Spur) Cancelled Rouleaux Cancelled Schistocytes Cancelled Sodium Cancelled Potassium Cancelled Chloride Cancelled Carbon Dioxide Cancelled Anion Gap Cancelled BUN Cancelled Creatinine Cancelled Estim Creat Clear Calc Cancelled Est GFR (MDRD) Af Amer Cancelled Est GFR (MDRD) Non-Af Cancelled BUN/Creatinine Ratio Cancelled Glucose Cancelled Calcium Cancelled Total Bilirubin Cancelled AST Cancelled ALT Cancelled Alkaline Phosphatase Cancelled Total Protein Cancelled Albumin Cancelled Globulin Cancelled Albumin/Globulin Ratio Cancelled Urine Color Urine Clarity Urine pH Ur Specific [place] Urine Protein Urine Glucose (UA) Urine Ketones Urine Occult Blood Urine Nitrite Urine Bilirubin Urine Urobilinogen Ur Leukocyte Esterase Urine RBC Urine WBC Ur Squamous Epith Cells Urine Bacteria Urine Mucus Urine Test Urine Opiates Screen Urine Methadone Screen Ur Barbiturates Screen Ur Phencyclidine Scrn Ur Amphetamines Screen U Methamphetamin-MDMA U Benzodiazepines Scrn Urine Cocaine Screen U Cannabinoids Screen Ur Drug Screen Comment Ethyl Alcohol Cancelled 11/02/20 11/02/20 11/02/20 18:25 18:29 18:29 WBC 11.0 Corrected WBC RBC 4.80 Hgb 14.3 Hct 43.1 MCV 89.8 MCH 29.8 MCHC 33.2 RDW Std Deviation 44.9 H RDW Coeff of Dc 13.6 Plt Count 341 MPV 9.8 Immature Gran % (Auto) 0.200 Neut % (Auto) 52.8 Lymph % (Auto) 37.3 [place] % (Auto) 7.8 Eos % (Auto) 1.3 Baso % (Auto) 0.6 Absolute Neuts (auto) 5.8 Absolute Lymphs (auto) 4.08 Total Counted Neutrophils % (Manual) Band Neutrophils % Lymphocytes % (Manual) Monocytes % (Manual) Eosinophils % (Manual) Basophils % (Manual) Metamyelocytes % Myelocytes % Promyelocytes % Blast Cells % Plasma Cell % (Manual) Other Cells % Nucleated RBC % 0 Nucleated RBCs/100 WBC Differential Comment Diff Path Review Hypersegmented Neuts Atypical Lymphocytes Reactive Lymphocytes Smudge Cells Toxic Granulation Toxic Vacuolation Dohle Bodies Nazanin Rods Platelet Estimate Plt Morphology Comment RBC Morphology Polychromasia Hypochromasia Poikilocytosis Basophilic Stippling Anisocytosis Microcytosis Macrocytosis Spherocytes Sickle Cells Target Cells Tear Drop Cells Ovalocytes Stomatocytes [place] Bodies Jenn Cells Bite Cells Crenated Cell Acanthocytes (Spur) Rouleaux Schistocytes Sodium Potassium Chloride Carbon Dioxide Anion Gap BUN Creatinine Estim Creat Clear Calc Est GFR (MDRD) Af Amer Est GFR (MDRD) Non-Af BUN/Creatinine Ratio Glucose Calcium Total Bilirubin AST ALT Alkaline Phosphatase Total Protein Albumin Globulin Albumin/Globulin Ratio Urine Color Yellow Urine Clarity Clear Urine pH 6.0 Ur Specific Hume 1.025 Urine Protein 15 H Urine Glucose (UA) Normal Urine Ketones Negative Urine Occult Blood Negative Urine Nitrite Negative Urine Bilirubin Negative Urine Urobilinogen 1 H Ur Leukocyte Esterase 25 H Urine RBC 0 SEEN Urine WBC 0-5 SEEN Ur Squamous Epith Cells 0-5 SEEN Urine Bacteria 0 SEEN Urine Mucus RARE Urine Test Negative Urine Opiates Screen Urine Methadone Screen Ur Barbiturates Screen Ur Phencyclidine Scrn Ur Amphetamines Screen U Methamphetamin-MDMA U Benzodiazepines Scrn Urine Cocaine Screen U Cannabinoids Screen Ur Drug Screen Comment Ethyl Alcohol 11/02/20 11/02/20 11/02/20 18:29 19:17 19:17 WBC Corrected WBC RBC Hgb Hct MCV MCH MCHC RDW Std Deviation RDW Coeff of Dc Plt Count MPV Immature Gran % (Auto) Neut % (Auto) Lymph % (Auto) [place] % (Auto) Eos % (Auto) Baso % (Auto) Absolute Neuts (auto) Absolute Lymphs (auto) Total Counted Neutrophils % (Manual) Band Neutrophils % Lymphocytes % (Manual) Monocytes % (Manual) Eosinophils % (Manual) Basophils % (Manual) Metamyelocytes % Myelocytes % Promyelocytes % Blast Cells % Plasma Cell % (Manual) Other Cells % Nucleated RBC % Nucleated RBCs/100 WBC Differential Comment Diff Path Review Hypersegmented Neuts Atypical Lymphocytes Reactive Lymphocytes Smudge Cells Toxic Granulation Toxic Vacuolation Dohle Bodies Nazanin Rods Platelet Estimate Plt Morphology Comment RBC Morphology Polychromasia Hypochromasia Poikilocytosis Basophilic Stippling Anisocytosis Microcytosis Macrocytosis Spherocytes Sickle Cells Target Cells Tear Drop Cells Ovalocytes Stomatocytes [place] Bodies [place] Cells Bite Cells Crenated Cell Acanthocytes (Spur) Rouleaux Schistocytes Sodium 138 Potassium 3.3 L Chloride 103 Carbon Dioxide 27.0 Anion Gap 8 BUN 16 Creatinine 0.94 Estim Creat Clear Calc 63.83 Est GFR (MDRD) Af Amer 83 Est GFR (MDRD) Non-Af 69 BUN/Creatinine Ratio 17.1 Glucose 91 Calcium 9.5 Total Bilirubin 0.40 AST 24 ALT 41 Alkaline Phosphatase 62 Total Protein 7.4 Albumin 3.7 Globulin 3.7 Albumin/Globulin Ratio 1.0 Urine Color Urine Clarity Urine pH Ur Specific [place] Urine Protein Urine Glucose (UA) Urine Ketones Urine Occult Blood Urine Nitrite Urine Bilirubin Urine Urobilinogen Ur Leukocyte Esterase Urine RBC Urine WBC Ur Squamous Epith Cells Urine Bacteria Urine Mucus Urine Test Urine Opiates Screen NEGATIVE Urine Methadone Screen NEGATIVE Ur Barbiturates Screen NEGATIVE Ur Phencyclidine Scrn NEGATIVE Ur Amphetamines Screen POSITIVE H U Methamphetamin-MDMA POSITIVE H U Benzodiazepines Scrn NEGATIVE Urine Cocaine Screen NEGATIVE U Cannabinoids Screen NEGATIVE Ur Drug Screen Comment Ethyl Alcohol < 3.0 Physical Exam Const no apparent distress and healthy appearing General Appearance: cooperative, well kempt and well developed Orientation / Consciousness: awake, oriented to person, oriented to place, oriented to time and lethargic HEENT normocephalic and head/scalp atraumatic Head and Scalp: normocephalic Neck nuchal rigidity, supple, no JVD, thyroid normal and no carotid bruits General: trachea midline Resp normal respiratory effort, no retractions, no use of accessory muscles and clear to auscultation bilaterally Auscultation: Negative for rales, rhonchi or wheezes Cardio regular rate, regular rhythm, S1 normal heart sound, S2 normal heart sound, no murmurs, no rub, no gallops and no clicks; Negative for no JVD GI normal to inspection, nondistended, normoactive bowel sounds, soft to palpation, non-tender and non-distended Extremity no clubbing, cyanosis or edema Skin no rashes or lesions noted, no wounds and skin turgor normal General Skin Exam: no breakdown Neuro CN's II-XII intact bilaterally, no focal motor deficits and no sensory deficits noted Speech: speech normal Psych thought process normal Psych Narrative: Patient is lethargic and somnolent, she was not awake during my examination. Assessment & Plan Assessment/Plan (1) Polysubstance abuse: (2) Opioid abuse: (3) Opioid withdrawal: PLAN: 1. Opioid withdrawal-continue present treatment, the addiction social community services officer was not able to talk with the patient today #2 polysubstance abuse #3 chronic opioid addiction
[2020-11-03 23:02] VITALS: BP 155/80; PULSE 81; RESP 16; TEMP 36.9; O2SAT 97
[2020-11-04] VITALS (7 sets, daily range): BP systolic 84–98; BP diastolic 46–62; PULSE 76–89; RESP 18–22; TEMP 36.7–37.3; O2SAT 93–95
--- NOTE | 2020-11-04 09:09 | NURSING ---
pt agitated this am because of missing buprenorphine taper doses yesterday-explained to pt how drowsy and bp low was yesterday and it would not habe been safe -charge nurse in to talk to pt
[2020-11-04] MEDS: Methocarbamol 750 MG Tablet 1500 MG PO (09:52)
[2020-11-04] MEDS: Buprenorphine HCl 2 MG TAB.SUBL SL ×2 (09:52→17:05)
--- NOTE | 2020-11-04 09:52 | ADDICTION ---
This health science writer met with PT to conduct ASAM, MSE, DUDIT assessments and to plan for d/c. PT A+Ox4 and participated appropriately. All assessments completed, faxed to [facility] and placed in PT's chart. PT requesting referral to [facility]. Referral has been made, waiting for approval. PT amiable to [facility]. Transportation will be provided by admitting provider.
[2020-11-04] MEDS: LORazepam 1 MG Tablet 2 MG PO ×3 (11:56→21:48)
--- NOTE | 2020-11-04 12:10 | NURSING ---
pt conversing w/staff at this time, cooperative w/ care
--- NOTE | 2020-11-04 14:44 | CASEMGMT ---
SW met w/pt, gave pt information for local homeless skilled nursing, and for [facility], as pt is homeless. Pt states she is going to residential from here. She states she is already familiar with the homeless shelters here and has applied for [facility]. No further needs from JOANIE at this time. RICHARD Cai
[2020-11-04] MEDS: Gabapentin 300 MG Capsule PO (17:05)
[2020-11-04] MEDS: Thiamine Hydrochloride 100 MG Tablet PO (17:06)
--- NOTE | 2020-11-04 18:04 | PCM.PN.HOSP ---
Subjective Subjective Patient was seen and examined today, she did not complain of any nervousness or abdominal discomfort, she had no complaints of any muscle pain. Patient did request albuterol aerosol this afternoon, she had some cough and expiratory wheezes. Objective Data Objective Data Vital Signs: Vital Signs Temp Pulse Resp BP Pulse Ox 99.1 F 89 18 94/61 94 11/04/20 17:33 11/04/20 17:33 11/04/20 17:33 11/04/20 17:33 11/04/20 17:33 Oxygen Delivery Method Room Air Weight: 55.2 kg Body Mass Index (BMI) 24.5 Intake & Output: Intake and Output for Last 24 Hours 11/02/20 11/03/20 11/04/20 23:59 23:59 23:59 Intake Total 1160 / 1610 1290 / 1290 Balance 1160 / 1610 1290 / 1290 Lab / Micro Data Result Diagrams: 11/02/20 18:25 11/02/20 19:17 Physical Exam Const alert, oriented x3, no apparent distress and healthy appearing General Appearance: cooperative, well kempt and well developed Orientation / Consciousness: awake, oriented to person, oriented to place and oriented to time HEENT normocephalic and moist oral mucous membranes Eyes PERRL, EOMs intact bilaterally and conjunctivae normal General Eye: normal appearance of both eyes Periorbital: periorbital findings normal Neck nuchal rigidity, supple, no JVD, thyroid normal and no carotid bruits General: trachea midline Thyroid: thyroid normal Resp normal respiratory effort Auscultation: wheezes expiratory wheezes and throughout; Negative for rales or rhonchi Cardio regular rate, regular rhythm, no murmurs, no rub and no gallops Peripheral Pulses: pulses 2+ throughout GI normal to inspection, nondistended, normoactive bowel sounds, soft to palpation, non-tender and non-distended Auscultation: normoactive bowel sounds Extremity no clubbing, cyanosis or edema Skin no rashes or lesions noted General Skin Exam: no breakdown Neuro oriented x3, CN's II-XII intact bilaterally, no focal motor deficits and no sensory deficits noted Sensorium / Orientation: awake and alert Speech: speech normal Motor Exam: strength 5/5 throughout Psych thought process normal and affect normal Psych Narrative: Patient is lethargic and somnolent, she was not awake during my examination. Mood & Affect: anxious Assessment & Plan Assessment/Plan (1) Polysubstance abuse: (2) Opioid abuse: (3) Opioid withdrawal: PLAN: 1. Opioid withdrawal-continue present treatment, patient states she would like to do inpatient rehab for opiate addiction #2 polysubstance abuse #3 chronic opioid addiction #4 expiratory wheezing-probably related to tobacco usage, albuterol aerosol treatments every 2 hours as needed ordered Visit Charges Inpatient E&M: 65557 Subs Hosp L2
--- NOTE | 2020-11-04 21:38 | NURSING ---
Respiratory called for breathing treatment per pt's request.
[2020-11-04] MEDS: traZODone 100 MG Tablet PO (21:48)
[2020-11-04] MEDS: Albuterol 2.5 MG/3 ML VIAL.NEB. INHALATION (21:55)
[2020-11-05] VITALS (8 sets, daily range): BP systolic 86–123; BP diastolic 51–100; PULSE 68–100; RESP 16–20; TEMP 36.7–37; O2SAT 92–94
[2020-11-05] MEDS: guaiFENesin 10 ML UDC (200MG/10ML) GT ×4 (05:13→20:37)
[2020-11-05] MEDS: Buprenorphine HCl 2 MG TAB.SUBL SL ×2 (07:45→17:46)
[2020-11-05] MEDS: LORazepam 1 MG Tablet 2 MG PO ×4 (08:55→20:36)
--- NOTE | 2020-11-05 09:20 | NURSING ---
UPDATED FROM ELECTRIC ORGAN CHECKER LEODAN THAT PT HAS VERBALIZED TO [facility] FROM [facility] [employer]ID[employer]. SPOOL CLEANER HAND CALLED, SUICIDE PRECAUTIONS INITIATED. AWARE LEODAN ELECTRIC ORGAN CHECKER GOING TO ASSESS PATIENT. DR. BARRAZA AND RN NEWSPAPER DISTRIBUTOR SUPERVISOR UPDATE
--- NOTE | 2020-11-05 09:38 | NURSING ---
CALLED TO PATIENTS ROOM BY TOOLING SPECIALIST WHO WAS PREPARING ROOM FOR SUICIDE PRECAUTIONS. AMAURI PORRAS RN ALSO AT BEDSIDE. PT UPSET ASKING ABOUT SUICIDE PRECAUTIONS. EXPLAINED TO PATIENT BECAUSE OF CONVERSATION SHE HAD WITH RADIOACTIVITY TECHNICIAN REQUIRED TO PLACE THEY PRECAUTIONS. EXPLAINED TO PATIENT OF REMOVAL OF ITEMS WELL SITTER THAT WILL BE PRESENT IN ROOM. PT AGITATED PACING IN ROOM. PT STATES SHE TWISTED MY WORDS STATES I TOLD HER NO ALSO STATES THAT SHE DID TELL THE RADIOACTIVITY TECHNICIAN IF I DID I WOULDN'T TELL HER STATING I DON'T KNOW HER WHY WOULD I TELL HER EXPLAINED TO PATIENT BECAUSE OF THIS PRECAUTIONS ARE PLACED FOR HER SAFETY. PT REQUESTING TO SEE PT ADVOCATE. PT AGITATED AND ATTEMPTED TO ARGUE SUICIDE PRECAUTIONS. EXPLAINED TO PATIENT THIS NURSE WOULD HAVE ADVOCATE COME TALK WITH HER AND WOULD TALK WITH RADIOACTIVITY TECHNICIAN BUT UNTIL CLEARED BY THEM OR CRISIS AND THE PHYSICIAN THESE PRECAUTIONS WOULD REMAIN. NO FURTHER NEEDS VERBALIZED, CHIQUITA HORTON REMAINS BEDSIDE.
--- NOTE | 2020-11-05 09:44 | ADDICTION ---
This scenario writer met with PT to finalize d/c plan. PT A+Ox4 and presented with agitated mood and congruent affect. This scenario writer informed PT that [facility] currently has no open beds and offered other resources. PT declined stating that she has court on 11/09/20 and needs to stay in [place] in order to present for court. This scenario writer facilitated telephone call to [facility] and PT was able to schedule admit to [facility] sober housing program for 11/06/20 @ 11am. PT stated I want to just kill myself and be done with this shit. This scenario writer asked PT if she has plans/intent to harm herself and PT noted If I did, I wouldn't tell you. I'm not stupid. This scenario writer informed [facility] Mayram NAIR, that PT may have suicidal ideations.
--- NOTE | 2020-11-05 09:45 | CASEMGMT ---
Social Work Note JOANIE updated that Ama with [facility] met with pt and plan is for pt to follow up at [facility], transportation is arranged for 11:00am tomorrow morning. Ama also updated that this worker that pt made a comment of well I might as well kill myself. JOANIE updated Charge Nurse. SW in to speak with pt. SW introduced self and role at [facility]. Pt states she is handling things as best as she can. Pt states she has good supports but hasn't been able to talk to them while she is at [facility]. SW asked pt about suicidal thoughts/plans/ideations. Pt states she has suicidal thoughts a lot and the most recent was last week. Pt states she was homeless, had no where to go, was on drugs, and not being able to see her kids. Pt states she has never attempted suicide or came up with a plan. Pt then states if I had a plan I wouldn't tell you. SW began to complete [place] Suicide Risk assessment. Pt states she does have thoughts of being but again states If I had them, I wouldn't tell you, I know how this works. Pt states that she has thoughts about being depressed, but has never came up with a plan. Pt denied any intentions to harm self. Pt states that she will be going to treatment when she leaves [facility]. Pt becoming increasingly agitated during conversation with this worker. Pt states I never told that Lady I wanted to kill myself and now they are sending in you. SW tried to explain that this worker is just trying to make sure pt is safe and pt is not going to leave [facility] and Harm self. Pt states I am safe, I am not going to do anything. Pt states I am not going to tell you anything because I know how this works. Pt states that rob turned my words around, I can't trust her anymore. Pt again denies that she ever made a comment of killing herself. Pt states she may have thought about being , but denied stating she wanted to kill herself. Pt denied any current suicidal thoughts/plans/ideations. Pt then states why are you still in my room? JOANIE updated charge nurse. JOANIE discussed case with Ayleen RAMOS. SW will go back in to speak with pt to ask additional questions. SW back in to speak with pt. SW informed pt that this worker is aware she wouldn't tell this worker if she had a plan but asked at this current time if pt had any suicidal thoughts/plans/ideations. Pt again denied any current suicidal thoughts/plans/ideations. Pt denied access to any lethal means (guns, medications). SW asked pt about her suicidal thoughts and how long they last. Pt states maybe a minute or two. SW asked pt what she does to get her mind off of the suicidal thoughts, pt states I will call my kids. SW asked pt if she ever had any interrupted suicidal thoughts and pt denied. SW informed pt that this worker is just trying to support pt and better understanding pt. Pt stated I am trying to understand why you are turning my words around. SW again explained that it was reported to this worker that she made a comment about killing herself and that is why this worker is speaking to her. Pt then asked how long am I going to have this blood bank calendar control clerk? SW explained that it will be up to the physician when sitter can be removed. SW updated physician on conversation. Physician still wants crisis to evaluate pt. JOANIE placed a call to Malia at [facility] and provided referral. Malia states she can come over and assess pt but won't be able to get pt placed or complete a safety plan until pt has completed the detox. JOANIE faxed referral to Crisis at [facility]. JOANIE updated Charge Nurse and RN that Crisis will be at [facility] to evaluate pt. Plan: Crisis to evaluate Maryam Connor PERSONNEL REPRESENTATIVE, RICE FIELD WORKER
[2020-11-05] MEDS: Gabapentin 300 MG Capsule PO (13:24)
[2020-11-05] MEDS: Methocarbamol 750 MG Tablet 1500 MG PO (13:24)
--- NOTE | 2020-11-05 15:43 | CASEMGMT ---
Social Work Note JOANIE spoke with Crisis, Plan is for Crisis to continue assessment/reassess pt tomorrow and will safety plan with pt. JOANIE placed a call to Ama with [facility] and updated her. Ama asked when Crisis will be in to evaluate pt as transportation is arranged for 11:00am tomorrow to transport pt to [facility]. JOANIE informed Ama that this worker is not sure, will call Crisis to check on time they will be at [facility]. JOANIE placed a call to [facility] and spoke with Malia. JOANIE updated Malia that pt is working with [facility], plans to discharge tomorrow at 11:00am. Malia states she will be at [facility] at 10:00am tomorrow. JOANIE placed a call back to Ama at [facility] and updated her on time Crisis will be at [facility] tomorrow. Ama states understanding. Charge nurse updated. Maryam Connor OPERATIONAL TEST MECHANIC, WIND TURBINE CONTROLS ENGINEER
--- NOTE | 2020-11-05 18:34 | PCM.PN.HOSP ---
Subjective Subjective Patient was seen and examined today, she made vague statements this morning about wanting to and nursing felt that she was talking about suicide, patient denied this, social science analyst talked with her extensively and she denied wanting to hurt her self to the social science analyst. I had crisis see her but she was argumentative and belligerent with them and they are going to see her again tomorrow. She is not able to go to [facility] as an inpatient and will be treated at a different inpatient facility that does not use medications. Patient appeared to be upset about this. Objective Data Objective Data Vital Signs: Vital Signs Temp Pulse Resp BP Pulse Ox 98.0 F 83 20 H 96/59 L 94 11/05/20 14:02 11/05/20 14:02 11/05/20 14:02 11/05/20 14:02 11/05/20 14:02 Oxygen Delivery Method Room Air Weight: 55.2 kg Body Mass Index (BMI) 24.5 Intake & Output: Intake and Output for Last 24 Hours 11/03/20 11/04/20 11/05/20 23:59 23:59 23:59 Intake Total 1160 / 1610 1290 / 1590 1000 / 1000 Balance 1160 / 1610 1290 / 1590 1000 / 1000 Lab / Micro Data Result Diagrams: 11/02/20 18:25 11/02/20 19:17 Physical Exam Const alert, oriented x3, no apparent distress and healthy appearing General Appearance: cooperative, well kempt and well developed Orientation / Consciousness: awake, oriented to person, oriented to place and oriented to time HEENT normocephalic and moist oral mucous membranes Eyes PERRL, EOMs intact bilaterally and conjunctivae normal General Eye: normal appearance of both eyes Periorbital: periorbital findings normal Neck nuchal rigidity, supple, no JVD, thyroid normal and no carotid bruits General: trachea midline Thyroid: thyroid normal Resp normal respiratory effort and clear to auscultation bilaterally Auscultation: Negative for rales, rhonchi or wheezes Cardio regular rate, regular rhythm, no murmurs, no rub and no gallops Peripheral Pulses: pulses 2+ throughout GI normal to inspection, nondistended, normoactive bowel sounds, soft to palpation, non-tender and non-distended Auscultation: normoactive bowel sounds Extremity no clubbing, cyanosis or edema Skin no rashes or lesions noted General Skin Exam: no breakdown Neuro oriented x3, CN's II-XII intact bilaterally, no focal motor deficits and no sensory deficits noted Sensorium / Orientation: awake and alert Speech: speech normal Motor Exam: strength 5/5 throughout Psych thought process normal and affect normal Psych Narrative: Patient is lethargic and somnolent, she was not awake during my examination. Mood & Affect: anxious Assessment & Plan Assessment/Plan (1) Polysubstance abuse: (2) Opioid abuse: (3) Opioid withdrawal: PLAN: 1. Opioid withdrawal-continue present treatment #2 polysubstance abuse #3 chronic opioid addiction #4 expiratory wheezing-probably related to tobacco usage, resolved at this time, albuterol aerosol treatments every 2 hours as needed ordered #5 likely borderline personality disorder versus bipolar disorder-crisis will talk with the patient again tomorrow
[2020-11-05] MEDS: Dicyclomine 10 MG Capsule 20 MG PO (20:36)
[2020-11-05] MEDS: Ondansetron 8 MG Tablet PO (20:36)
[2020-11-06] MEDS: LORazepam 1 MG Tablet 2 MG PO (00:03)
[2020-11-06] MEDS: traZODone 100 MG Tablet PO (00:03)
[2020-11-06] MEDS: Gabapentin 300 MG Capsule PO ×2 (00:03→08:41)
[2020-11-06] MEDS: Methocarbamol 750 MG Tablet 1500 MG PO (00:03)
[2020-11-06] MEDS: guaiFENesin 10 ML UDC (200MG/10ML) GT (01:48)
[2020-11-06] MEDS: Buprenorphine HCl 2 MG TAB.SUBL SL ×2 (01:48→09:57)
[2020-11-06] MEDS: Loperamide 2 MG Capsule PO (04:23)
[2020-11-06] MEDS: hydrOXYzine PAM 25 MG Capsule 50 MG PO (04:23)
[2020-11-06] MEDS: Dicyclomine 10 MG Capsule 20 MG PO (04:24)
[2020-11-06 08:18] VITALS: BP 95/55; PULSE 90; RESP 20; TEMP 36.6
[2020-11-06 08:26] VITALS: PULSE 90
[2020-11-06] MEDS: Ondansetron 8 MG Tablet PO (08:41)
[2020-11-06] MEDS: LORazepam 1 MG Tablet PO (08:56)
--- NOTE | 2020-11-06 10:30 | CASEMGMT ---
Social Work Note SW spoke with Crisis, pt has been cleared. JOANIE spoke with Ama with [facility] to Clarify on [facility]. Ama states [facility] is not residential, but pt will stay there for a few days initially. JOANIE updated physician that [facility] is still coming to [facility] at 11:00am to transport pt to [facility]. Maryam Connor ROLL BUILDER, WORKFORCE PLANNER
--- NOTE | 2020-11-06 10:31 | PCM.DC ---
Discharge Instructions Follow Up Care Test Results: Test results from this visit will be discussed in further detail at your follow-up appointment, if applicable. Discharge Plan Admission Admit Date/Time: 11/02/20 18:13 Attending Provider: Claudio Mcintyre Primary Care Provider: Care Physician,No Primary Discharge Orders/Prescriptions Prescriptions: No Action NK RF: 0 Referrals / Follow Up: Care Physician,No Primary [Primary Care Provider] - Disposition Disposition (needs filled in before D/C Order can be placed): Home, self care
--- NOTE | 2020-11-12 07:47 | PCM.DC.SUM ---
Providers Date of Admission: 11/02/20 Date of Discharge: 11/06/20 Primary Care Physician: No Primary Care Phys Reason For Visit: ACUTE OPIOID WITHDRAWAL Diagnosis Discharge Diagnosis (1) Polysubstance abuse: Status: Chronic Code(s): F19.10 - Other psychoactive substance abuse, uncomplicated (2) Opioid abuse: Status: Chronic Code(s): F11.10 - Opioid abuse, uncomplicated (3) Opioid withdrawal: Status: Acute Code(s): F11.23 - Opioid dependence with withdrawal Plan: ?? 1.? Opioid withdrawal #2 polysubstance abuse #3 chronic opioid addiction #4 expiratory wheezing-probably related to tobacco usage #5 likely borderline personality disorder versus bipolar disorder Medications at Discharge Home Medications NK 09/15/20 Hospital Course Procedures None Summary of Care Provided Minutes Spent on Discharge: 31 Hospital Course: This 45-year-old white female was seen in the emergency room at [facility] requesting detox services from opiates. Patient stated that she snorts heroin. Work-up in the emergency room included a CBC which was unremarkable, potassium was slightly low at 3.3 and tox screen was positive for amphetamines and methamphetamines. Patient was admitted to [place] [address] using the opiate withdrawal order set, patient had some periods of agitation and aggressive behavior while she was in the hospital, she also made offhand comments about wanting to and nursing became concerned about possible suicidal ideation, I talked with the patient and she denied this however. [facility] saw the patient but was not able to get the patient into the [facility] program here and she was scheduled to follow-up with a different outpatient detox program. On 11/06/2020, patient was seen and examined: On examination she appeared in good health and spirits, she does not appear to be in any distress. Vital signs as documented. Skin warm and dry and without overt rashes. Neck without JVD, thyroid appears normal, trachea is midline, neck is supple. Lungs clear, normal air movement was noted. Heart exam notable for regular rhythm, normal sounds and absence of murmurs, rubs or gallops. Abdomen unremarkable and without evidence of organomegaly, masses, or abdominal aortic enlargement, bowel sounds are present in all 4 quadrants, no abdominal tenderness was noted. Extremities nonedematous, no cyanosis was noted, no clubbing was noted. Neuro: Cranial nerves II through XII are grossly intact, no focal motor deficits were noted, sensation to light touch and pinprick is intact, motor exam 5/5 throughout. Psych: Patient is alert and oriented x3, she does not appear anxious or depressed, she does not appear agitated. Patient was felt to be stable for discharge on 11/06/2020. ABG / Lab / Microbiology Data Result Diagrams: 11/02/20 18:25 11/02/20 19:17 Meaningful Use Info Meaningful Use Diagnoses (Choose all that apply): None applicable Discharge Plan Admission Admit Date/Time: 11/02/20 18:13 Attending Provider: Cluadio Mcintyre Primary Care Provider: Care Physician,No Primary Discharge Orders/Prescriptions Prescriptions: No Action NK RF: 0 Referrals / Follow Up: Care Physician,No Primary [Primary Care Provider] - Disposition Disposition (needs filled in before D/C Order can be placed): Home, self care Visit Charges Inpatient E&M: 67525 Disch Hosp
== END 2020-11-06 11:00 | disposition home or self-care (01) | DRG 773 ==
LOC: ED 17:44 → MS3 22:47
PROVIDERS: Admitting Provider Hospitalist; Emergency Provider Emergency Medicine; Visit Provider Internal Medicine
DX: F11.23 Opioid dependence with withdrawal (principal); F15.10 Other stimulant abuse, uncomplicated; F12.10 Cannabis abuse, uncomplicated; F17.200 Nicotine dependence, unspecified, uncomplicated; F31.9 Bipolar disorder, unspecified; F60.3 Borderline personality disorder
CPT/HCPCS: 36415; 80053; 80307; 81001; 81025; 82077; 85025; 94640; 97802; 99284; A4216

== ENCOUNTER 2020-11-08 16:31 | Emergency (ER) | payer MEDICAID, SELFPAY ==
[2020-11-08 16:32] VITALS: BP 116/93; PULSE 95; RESP 16; TEMP 36.1; O2SAT 97; BMI 23.2
--- NOTE | 2020-11-08 17:01 | EX.ED.VIS.PS ---
HPI HPI - Psych History of Present Illness Chief Complaint: Mental Health Informant: patient Onset/Context/Timing Onset: Today Context: Gradual Onset Current Severity: Mild Maximum Severity: Mild Associated Symptoms Associated Symptoms - Psych: Positive for Depressed Narrative Narrative: 45-year-old female recently at inpatient detox now is at a clean house. Says she has court tomorrow and she misses seeing her children. She was depressed today. And told an employee at the clean house that she wanted to kill herself. States that she is never attempted suicide in the past. Has no plan. States she is just depressed because of the situation she is in because of her history of drug abuse. She denies any prior overdose or other attempts. Prior similar symptoms: No Recent Illness/Hospitalization: No PFSH PFSH Medical History Anxiety Depression Drug addict Hepatitis Smoker Substance abuse Home Medications NK 09/15/20 [History Last Taken Unknown] Allergy/AdvReac Type Severity Reaction Status Date / Time No Known Allergies Allergy Verified 11/08/20 16:35 Social History Smoking Status: Current every day smoker substance use type: marijuana and heroin EXAM Physical Exam Narrative Exam Narrative: Denies any recent illness. Has had some nausea with the withdrawal but not in the last several days. Const Vital Signs: 11/08/20 16:32 Temperature 97.0 F L Temperature Source Temporal Pulse Rate 95 Respiratory Rate 16 Blood Pressure 116/93 H Blood Pressure Mean 100 Pulse Ox 97 Oxygen Delivery Method Room Air Positive well nourished and well developed General Appearance ED: well developed HEENT normocephalic and atraumatic Eyes PERRL and EOMs intact bilaterally Neck no lymphadenopathy, supple and no JVD Resp normal respiratory effort and clear to auscultation bilaterally Cardio no murmurs Rate: regular rate; Negative for bradycardia or tachycardic Rhythm: regular rhythm GI non-tender, non-distended and no masses Auscultation: normoactive bowel sounds Palpation: soft Back/Spine no CVA tenderness Extremity normal to inspection General Extremety ED: Yes edema, tenderness and other findings General Extremity: edema and other findings Neuro oriented x3 and CN's II-XII intact bilaterally Sensorium / Orientation: alert, oriented to person, oriented to place and oriented to time Motor Exam: strength 5/5 throughout Psych mental status grossly normal, activity/motor behavior normal and denies suicidal ideation Appearance: grossly normal Activity / Motor Behavior: appropriate eye contact Speech: normal speech and No incoherent Thought Process: normal thought process Thought Content: normal thought content Memory / Cognition: memory grossly intact Insight: insight good Judgement: judgement good Skin Skin Narrative: Multiple tattoos. Lesions: no lesions Rashes: no rashes MDM MDM MDM Narrative Medical decision making narrative: 45-year-old female history of prior methamphetamine and heroin abuse. Currently in a clean house. Depressed but she is court tomorrow and has family issues. Denies being actually suicidal. Clinically she believes the patient. I will have her talk to crisis. If they are comfortable also she will be discharged back to the clean house. Crisis called and spoke to the patient at length. They are comfortable with the patient being discharged back to the detox facility she is currently in. Discharge Plan Triage Chief Complaint: Mental Health ED Provider: Paul Phillips Dx/Rx/DC Orders Clinical Impression: Depression Instructions: ED Depression Prescriptions: No Action NK RF: 0 Primary Care Provider: Care Physician,No Primary Referrals: Counseling,Center [GROUP OF PHYSICIANS] - As soon as possible Care Physician,No Primary [Primary Care Provider] - Activity Restrictions/Additional Instructions: If you have further issues with anxiety depression follow-up with the counseling center. Return if you are feeling worse that you might harm yourself or others. Disposition Disposition: Home, self care
--- NOTE | 2020-11-08 17:06 | NURSING ---
CALLED [facility]. THEY WILL GET A MESSAGE TO CALL IN AND TALK TO PATIENT
--- NOTE | 2020-11-08 17:30 | NURSING ---
LIZ, [facility], ON PHONE TALKING TO PATIENT
--- NOTE | 2020-11-08 17:31 | ED.RN ---
PT TALKING TO [facility] AT THIS TIME
== END 2020-11-08 17:57 | disposition home or self-care (01) ==
PROVIDERS: Emergency Provider Emergency Medicine
DX: F32.9 Major depressive disorder, single episode, unspecified (principal); F17.200 Nicotine dependence, unspecified, uncomplicated
CPT/HCPCS: 99282